=== PATIENT | female | born 1990 | race Caucasian/White ===

== ENCOUNTER 2017-05-26 08:12 | Emergency (ER) | payer OTHER ==
[2017-05-26 08:25] VITALS: BP 112/67
--- NOTE | 2017-05-26 08:36 | UC ---
Skin Complaint HPI - HPI Summary HPI Summary: REMOVED A TICK FROM LEFT BUTTOCKS THIS MORNING. IS PRETTY SURE IT WAS ATTACHED FOR LESS THAN 24 HOURS. 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 - Hx Last Menstrual Period: appox 3 weeks ago Onset Severity: Mild Current Severity: Mild Pain Intensity: 0 Pain Scale Used: 0-10 Numeric Location: Discrete - LEFT BUTTOCKS Character: Redness Aggravating Factor(s): Touch Alleviating Factor(s): Nothing Associated Signs & Symptoms: Positive: Tenderness Related History: Insect Bite/Sting - Allergy/Home Medications Allergies/Adverse Reactions: Allergies Allergy/AdvReac Type Severity Reaction Status Date / Time No Known Allergies Allergy Verified 07/12/14 16:13 Home Medications: Home Medications NK [No Home Medications Reported] 05/26/17 [History Confirmed 05/26/17] Review of Systems Constitutional: Negative Skin: Other - TICK BITE LEFT BUTTOCK Respiratory: Negative Cardiovascular: Negative Gastrointestinal: Negative Neurological: Negative All Other Systems Reviewed And Are Negative: Yes PMH/Surg Hx/FS Hx/Imm Hx Previously Healthy: Yes - Surgical History Surgical History: Yes Surgery Procedure, Year, and Place: 2008 - Family History Known Family History: Negative: Hypertension - Social History Alcohol Use: Occasionally Substance Use Type: None Smoking Status (MU): Current Every Day Smoker Amount Used/How Often: 10 cigs daily Length of Time of Smoking/Using Tobacco: age 14 Have You Smoked in the Last Year: Yes When Did the Patient Quit Smoking/Using Tobacco: quit 09/09/2013 Physical Exam Triage Information Reviewed: Yes Appearance: Well-Appearing, No Pain Distress, Well-Nourished Vital Signs: Initial Vital Signs Temp 98.2 F 05/26/17 08:21 Pulse 71 05/26/17 08:21 Resp 16 05/26/17 08:21 BP 112/67 05/26/17 08:21 Pulse Ox 100 05/26/17 08:21 Vital Signs Reviewed: Yes Eyes: Positive: Conjunctiva Clear ENT: Positive: Hearing grossly normal Neck: Positive: Supple Respiratory: Positive: No respiratory distress, No accessory muscle use Cardiovascular: Positive: Pulses Normal Abdomen Description: Positive: Soft Musculoskeletal: Positive: No Edema Neurological: Positive: Alert Psychological: Positive: Age Appropriate Behavior Skin: Positive: Other - TICK BITE SITE LEFT BUTTOCK WITH <1CM SURROUNDING ERYTHEMA. MILDLY TENDER. Course/Dx - Diagnoses Provider Diagnoses: TICK BITE Discharge - Discharge Plan Condition: Stable Disposition: HOME Patient Education Materials: Tick Bite (ED) Referrals: Yosef Seaman DO [Primary Care Provider] - If Needed Additional Instructions: The Infectious Disease Society of [place] (IDSA) does not generally recommend antimicrobial prophylaxis for prevention of Lyme disease after a recognized tick bite. However, in areas that are highly endemic for Lyme disease, a single dose of doxycycline may be offered to adult patients (200 mg) who are not and to children older than 8 years of age (4 mg/kg up to a maximum dose of 200 mg) when all of the following circumstances exist: CRITERIA FOR RECEIVING PROPHYLACTIC TREATMENT FOR LYME DISEASE 1) TICK ATTACHED FOR AT LEAST 36 HRS 2) TICK IS AN ADULT OR [place] DEER TICK 3) YOU LIVE IN AN AREA WHERE LYME DISEASE IS PREVALENT (i.e., [place], [place], [place], [place], [place] , [place], [place], [place], [place], [place], [place], [place], [place], [place]) 4) YOU HAVE NO CONTRAINDICATION TO THE MEDICATION (DOXYCYCLINE) 5) PROPHYLAXIS IS BEGUN WITHIN 72 HRS OF TICK REMOVAL SINCE YOU DO NOT MEET ALL THESE CRITERIA THERE IS NO NEED TO GIVE YOU PROPHYLACTIC ANTIBIOTICS. YOUR CHANCES OF DEVELOPING LYME DISEASE ARE EXTREMELY SMALL. BE VIGILANT OF YOUR SYMPTOMS AND DON'T HESITATE TO GET SEEN AGAIN IF YOU DEVELOP UNEXPLAINED FEVER, HEADACHE, JOINT PAIN, BODY ACHES, RASH OR ANY OTHER CONCERNING SYMPTOMS. Antibiotic treatment following a tick bite is not recommended as a means to prevent anaplasmosis, babesiosis, ehrlichiosis, or Barre spotted fever. There is no evidence this practice is effective, and it may simply delay onset of disease. Instead, persons who experience a tick bite should be alert for symptoms suggestive of tickborne illness and consult a physician if fever, rash, or other symptoms of concern develop.
== END 2017-05-26 09:02 | disposition home or self-care (01) ==
LOC: UCEAST 08:12
DX: S30.860A Insect bite (nonvenomous) of lower back and pelvis, initial encounter (principal); W57.XXXA Bitten or stung by nonvenomous insect and other nonvenomous arthropods, initial encounter; Y92.9 Unspecified place or not applicable; Z72.0 Tobacco use; Z72.89 Other problems related to lifestyle
CPT/HCPCS: 99211; G0463

== ENCOUNTER 2017-11-20 09:08 | Emergency (ER) | payer OTHER ==
[2017-11-20 09:12] VITALS: BP 117/73
[2017-11-20] MEDS ORDERED: Ketorolac INJ* 60 MG/2 ML VIAL IM ONE (09:58)
--- NOTE | 2017-11-20 10:30 | RAD ---
Indication: Chest pain. 2 views of the chest including dual energy PA views demonstrate no mediastinal shift. Heart is of normal size and configuration. Lung yancey appear clear. No changes noted since previous exam of September 13, 2013. IMPRESSION: No active cardiopulmonary disease is noted.
--- NOTE | 2017-11-20 13:39 | UC ---
Selvin Goldman Julia, scribed for Naseem Pascual MD on 11/20/17 at 0933 . Cardiac HPI - HPI Summary HPI Summary: This patient is a 27 year old F [place] [facility] [place] daughter with a chief complaint of sharp R sided CP since she has quit smoking two days ago. Symptoms worsened by deep inspirations. Pain is reproducible by palpation. Pain is 6/10 in severity. Patient has no other complaints. No PMHx cardiac risk factors including DM, HTN, or high cholesterol. No FMHx of [place] at her age. - History of Current Complaint Chief Complaint: UCChestPain Stated Complaint: CHEST PAIN Time Seen by Provider: 11/20/17 09:14 Hx Obtained From: Patient Hx Last Menstrual Period: 11/07/17 Onset/Duration: Lasting Days Timing: Constant Pain Intensity: 6 Chest Pain Location: Right Anterior Character: Sharp/Stabbing Aggravating Factor(s): Deep Breaths Associated Signs & Symptoms: Positive: Negative - Allergy/Home Medications Allergies/Adverse Reactions: Allergies Allergy/AdvReac Type Severity Reaction Status Date / Time No Known Allergies Allergy Verified 11/20/17 09:13 PMH/Surg Hx/FS Hx/Imm Hx Previously Healthy: Yes - no DM, HTN, or high cholesterol - Surgical History Surgical History: Yes Surgery Procedure, Year, and Place: 2008 - Family History Known Family History: Negative: Cardiac Disease, Hypertension - Social History Alcohol Use: Occasionally Substance Use Type: None Smoking Status (MU): Former Smoker Amount Used/How Often: 10 cigs daily Length of Time of Smoking/Using Tobacco: age 14 Have You Smoked in the Last Year: Yes When Did the Patient Quit Smoking/Using Tobacco: quit 09/09/2013 Review of Systems Constitutional: Negative Cardiovascular: Chest Pain All Other Systems Reviewed And Are Negative: Yes Physical Exam - Summary Physical Exam Summary: VITAL SIGNS: Reviewed. GENERAL: Patient is a well developed and nourished female who is lying comfortable in the stretcher. Patient is not in any acute respiratory distress. HEAD AND FACE: Normocephalic EYES: PERRLA, EOMI x 2. EARS: Hearing grossly intact. MOUTH: Oropharynx within normal limits. NECK: Supple, trachea is midline, no adenopathy, no JVD, no carotid bruit. CHEST: Symmetric, reproducible chest pain with palpation LUNGS: Clear to auscultation bilaterally. No wheezing or crackles. CVS: Regular rate and rhythm, S1 and S2 present, no murmurs or gallops appreciated. ABDOMEN: Soft, non-tender. Bowel sounds are normal. No abdominal abnormal pulsations. EXTREMITIES: Full ROM in all major joints, no edema, no cyanosis or clubbing. NEURO: Alert and oriented x 3. No acute neurological deficits. Speech is normal and follows commands. SKIN: Dry and warm Triage Information Reviewed: Yes Vital Signs: Initial Vital Signs Temp 97.4 F 11/20/17 09:09 Pulse 74 11/20/17 09:09 Resp 18 11/20/17 09:09 BP 117/73 11/20/17 09:09 Pulse Ox 100 11/20/17 09:09 Vital Signs Reviewed: Yes Diagnostics - Radiology CXR Radiology Interpretation Completed By: Radiologist - No active cardiopulmonary disease is noted. Dr. Pascual has reviewed this report. - EKG Cardiac Rate: NL - at 78 BPM Cardiac Rhythm: Sinus: Normal - normal axis ST Segment: Normal - Assessment/Plan Course Of Treatment: This patient is a 27 year old F presenting [place] [facility] [place] by her daughter with a chief complaint of sharp R sided CP since she has quit smoking two days ago. Symptoms worsened by deep inspirations. Pain is reproducible by palpation. No PMHx cardiac risk factors including DM, HTN, or high cholesterol. No FMHx of [place] at her age. EKG reveals no acute pathology. CXR reveals no acute pathology. Due to CVA tenderness, patient is given a shot of Toradol and agrees to follow up with her PCP. I instructed her to return with worsening symptoms or development of diaphoresis, SOB, or dizziness. Patient understand and agrees. I discussed all the findings and test results with the patient. Plan of care was discussed with the patient, and patient understands and agrees. All questions were answered to patient satisfaction. There were no further complaints or concerns. Patient is given prescription for Ibuprofen for pain. - Clinical Impression Provider Diagnoses: chest pain Discharge - Sign-Out/Discharge Documenting (check all that apply): Discharge/Admit/Transfer - Discharge Plan Condition: Stable Disposition: HOME Prescriptions: Ibuprofen TAB* [Motrin TAB* 600 MG] 600 mg PO Q8H PRN #20 tab PRN Reason: Pain Patient Education Materials: Chest Pain (DC) Referrals: Yosef Seaman DO [Doctor of Osteopathy] - Additional Instructions: Take medications as instructed Increase your fluid intake Return to the UC if symptoms worsen - Billing Disposition and Condition Condition: STABLE Disposition: HOME The documentation as recorded by the Selvin castillo Julia accurately reflects the service I personally performed and the decisions made by , Naseem Pascual MD.
== END 2017-11-20 10:35 | disposition home or self-care (01) ==
LOC: UCEAST 09:08
DX: R07.9 Chest pain, unspecified (principal); Z87.891 Personal history of nicotine dependence
CPT/HCPCS: 71046; 93005; 96372; 99212; G0463; J1885